=== PATIENT | male | born 1985 ===

== ENCOUNTER 2021-01-27 22:03 | Emergency (ER) | payer OTHER ==
[2021-01-27 23:47] VITALS: BP 123/85
[2021-01-28] MEDS ORDERED: IBUPROFEN 600 MG TAB PO ONE ×2 (00:34→03:30)
[2021-01-28] MEDS ORDERED: ACETAMINOPHEN 500 MG TAB PO ONE ×2 (00:34→03:30)
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
== END 2021-01-28 03:40 | disposition home or self-care (01) ==
LOC: ED 22:03
DX: M62.830 Muscle spasm of back (principal); M62.838 Other muscle spasm; Z79.899 Other long term (current) drug therapy; V49.59XA Passenger injured in collision with other motor vehicles in traffic accident, initial encounter; Y93.89 Activity, other specified; Y92.488 Other paved roadways as the place of occurrence of the external cause; Y99.8 Other external cause status
CPT/HCPCS: 70450; 72100; 72125